=== PATIENT | female | born 1995 | race Caucasian/White ===

== ENCOUNTER 2017-05-11 11:08 | Emergency (ER) | payer MEDICAID ==
[~2017-05-11] VITALS: Ht 157.5 cm; Wt 51.2 kg
[~2017-05-11 11:08] MED LIST: LISINOPRIL PO
[2017-05-11 12:08] LABS: HEMATOCRIT 44.7 % (34.6-47.8); WHITE BLOOD COUNT 5.6 x10^3/uL (3.4-10)
[2017-05-11 12:19] LABS: BLOOD UREA NITROGEN 9 mg/dL (7-18)
[2017-05-11 13:39] VITALS: BP 115/72
== END 2017-05-11 13:51 | disposition home or self-care (01) ==
LOC: ED 11:49
DX: O20.0 Threatened abortion (principal)
CPT/HCPCS: 36415; 76830; 80048; 81001; 82040; 84702; 84703; 85025; 86901; 99285

== ENCOUNTER 2018-02-06 02:49 | Emergency (ER) | payer MEDICAID ==
[~2018-02-06] VITALS: Ht 157.5 cm; Wt 51.0 kg
[2018-02-06] MEDS ORDERED: MAALOX/HYOSCYAMINE/LIDOCAINE 45 ML BTL PO ONE (03:30)
[2018-02-06 03:37] LABS: BASOPHILS # (AUTO) 0.08 x10^3/uL (0-0.1); BASOPHILS % (AUTO) 1 % (0-1); EOSINOPHILS # (AUTO) 0.11 x10^3/uL (0-0.4); EOSINOPHILS % (AUTO) 1 % (1-7); LYMPHOCYTES # (AUTO) 2.01 x10^3/uL (1-3.4); LYMPHOCYTES % (AUTO) 18 % (22-44); MD NO; MEAN CORPUSCULAR HEMOGLOBIN 31.2 pg (27.0-34.8); MEAN CORPUSCULAR HGB CONC 33.4 g/dL (32.4-35.8); MEAN CORPUSCULAR VOLUME 93.5 fL (80-100); MONOCYTES # (AUTO) 0.71 x10^3/uL (0.2-0.8); MONOCYTES % (AUTO) 6 % (2-9); NEUTROPHILS # (AUTO) 8.29 x10^3/uL (1.8-6.8); NEUTROPHILS % (AUTO) 74 % (42-75); PLATELET COUNT 254 x10^3/uL (130-400); RED BLOOD COUNT 4.37 x10^6/uL (3.82-5.3); RED CELL DISTRIBUTION WIDTH 12.2 % (9.6-15.2)
[2018-02-06 03:45] LABS: ANION GAP 9 mmol/L (5-15); CALCIUM 8.7 mg/dL (8.5-10.1); CHLORIDE 108 mmol/L (98-107); CREATININE 0.85 mg/dL (0.55-1.02)
[2018-02-06 03:46] LABS: ALBUMIN 3.7 g/dL (3.4-5.0)
[2018-02-06 03:49] LABS: TROPONIN I < 0.015 ng/mL (0.000-0.045)
[2018-02-06] MEDS ORDERED: MAALOX/HYOSCYAMINE/LIDOCAINE 45 ML BTL ONE (03:54)
[2018-02-06 03:58] VITALS: BP 121/73
== END 2018-02-06 04:49 | disposition home or self-care (01) ==
LOC: ED 04:40
DX: R07.89 Other chest pain (principal); F17.200 Nicotine dependence, unspecified, uncomplicated; Z88.0 Allergy status to penicillin
CPT/HCPCS: 36415; 71045; 80048; 82040; 84484; 84703; 85025; 93005; 99285

== ENCOUNTER 2018-03-03 15:52 | Emergency (ER) | payer MEDICAID ==
[~2018-03-03] VITALS: Ht 157.5 cm; Wt 45.0 kg
[2018-03-03 16:45] LABS: BASOPHILS # (AUTO) 0.07 x10^3/uL (0-0.1); BASOPHILS % (AUTO) 1 % (0-1); EOSINOPHILS # (AUTO) 0.05 x10^3/uL (0-0.4); EOSINOPHILS % (AUTO) 0 % (1-7); LYMPHOCYTES % (AUTO) 12 % (22-44); MD NO; MEAN CORPUSCULAR HEMOGLOBIN 31.9 pg (27.0-34.8); MEAN CORPUSCULAR HGB CONC 33.6 g/dL (32.4-35.8); MEAN CORPUSCULAR VOLUME 95.2 fL (80-100); MEAN PLATELET VOLUME 8.5 fL (7.4-10.4); MONOCYTES # (AUTO) 0.92 x10^3/uL (0.2-0.8); MONOCYTES % (AUTO) 6 % (2-9); NEUTROPHILS # (AUTO) 12.04 x10^3/uL (1.8-6.8); NEUTROPHILS % (AUTO) 81 % (42-75); PLATELET COUNT 291 x10^3/uL (130-400); RED BLOOD COUNT 4.51 x10^6/uL (3.82-5.3); RED CELL DISTRIBUTION WIDTH 12.6 % (9.6-15.2)
[2018-03-03 16:58] LABS: ALBUMIN 4.4 g/dL (3.4-5.0); ANION GAP 7 mmol/L (5-15); CALCIUM 9.3 mg/dL (8.5-10.1); CHLORIDE 108 mmol/L (98-107); CREATININE 0.89 mg/dL (0.55-1.02)
[2018-03-03 17:09] LABS: CULTURE INDICATED? YES; MICROSCOPIC INDICATED
[2018-03-03 17:35] VITALS: BP 128/78
[2018-03-03] MEDS ORDERED: PHENAZOPYRIDINE 200 MG TABLET ONE (17:57)
[2018-03-03] MEDS ORDERED: PHENAZOPYRIDINE 200 MG TABLET PO ONE (18:00)
[2018-03-03] MEDS ORDERED: CEFTRIAXONE 1,000 MG ONE (18:15)
[2018-03-03] MEDS ORDERED: CEFTRIAXONE 1,000 MG IM ONE (18:30)
== END 2018-03-03 18:41 | disposition home or self-care (01) ==
LOC: ED 18:35
DX: N39.0 Urinary tract infection, site not specified (principal); R31.9 Hematuria, unspecified
CPT/HCPCS: 36415; 80048; 81001; 82040; 84703; 85025; 87077; 87086; 96372; 99284; J0696; 87186

== ENCOUNTER 2020-04-20 12:06 | Emergency (ER) | payer MEDICAID ==
[~2020-04-20] VITALS: Ht 157.5 cm; Wt 60.0 kg
[2020-04-20 12:09] VITALS: BP 106/63
== END 2020-04-20 13:26 | disposition home or self-care (01) ==
LOC: ED 13:24
DX: O26.892 Other specified pregnancy related conditions, second trimester (principal); M54.41 Lumbago with sciatica, right side; Z3A.00 Weeks of gestation of pregnancy not specified
CPT/HCPCS: 99283

== ENCOUNTER 2020-05-07 20:51 | Outpatient (CLI) | payer MEDICAID ==
[~2020-05-07] VITALS: Ht 157.5 cm; Wt 63.5 kg
[2020-05-07 21:14] VITALS: BP 116/65
[2020-05-07 21:20] LABS: MICROSCOPIC INDICATED
== END 2020-05-07 21:36 | disposition home or self-care (01) ==
LOC: LDOP 20:51
PROVIDERS: ATTEND Obstetrics & Gynecology
DX: O42.90 Premature rupture of membranes, unspecified as to length of time between rupture and onset of labor, unspecified weeks of gestation (principal); Z3A.00 Weeks of gestation of pregnancy not specified; Z79.899 Other long term (current) drug therapy
CPT/HCPCS: 81001; 87086; 99211; G0463

== ENCOUNTER → 2020-05-10 | Outpatient (CLI) | payer MEDICAID | END | disposition home or self-care (01) | LOC: CFH 13:35 | PROVIDERS: ATTEND Obstetrics & Gynecology | DX: R31.9 Hematuria, unspecified (principal) | CPT/HCPCS: 76770 ==